=== PATIENT | male | born 1985 | race African-American/Black ===

== ENCOUNTER 2021-12-28 13:20 | Emergency (ER) | payer MEDICAID ==
[~2021-12-28] VITALS: Ht 175.3 cm; Wt 68.0 kg
[2021-12-28 13:44] VITALS: BP 127/68
[2021-12-28] MEDS ORDERED: TRIA15CR61 TOP (14:59)
[2021-12-28] MEDS ORDERED: ALBU6.7H14 INH (14:59)
== END 2021-12-28 15:15 | disposition home or self-care (01) ==
LOC: ER 13:20
DX: J45.909 Unspecified asthma, uncomplicated (principal); L30.9 Dermatitis, unspecified
CPT/HCPCS: 71045; 99283

== ENCOUNTER 2021-12-29 02:25 | Emergency (ER) | payer MEDICAID ==
[~2021-12-29 02:25] MED LIST: ALBU6.7H14 INH; TRIA15CR61 TOP
== END 2021-12-29 02:57 | disposition home or self-care (01) ==
LOC: ER 02:29
DX: R07.89 Other chest pain (principal); J45.909 Unspecified asthma, uncomplicated; Z59.00 Homelessness unspecified; Z79.899 Other long term (current) drug therapy
CPT/HCPCS: 93005; 99283

== ENCOUNTER 2022-01-05 16:58 | Emergency (ER) | payer MEDICAID ==
[~2022-01-05] VITALS: Ht 175.3 cm; Wt 72.0 kg
[2022-01-05 17:19] VITALS: BP 131/77
== END 2022-01-05 20:07 | disposition left against medical advice (07) ==
LOC: ER 16:58
DX: R07.89 Other chest pain (principal); Z53.21 Procedure and treatment not carried out due to patient leaving prior to being seen by health care provider
CPT/HCPCS: 93005

== ENCOUNTER 2022-02-08 10:10 | Emergency (ER) | payer MEDICAID ==
[~2022-02-08] VITALS: Ht 175.3 cm; Wt 72.7 kg
[~2022-02-08 10:10] MED LIST changes: -TRIA15CR61 TOP
[2022-02-08 10:15] VITALS: BP 119/76
[2022-02-08] MEDS ORDERED: CefTRIAXone 1000mg IM Kit (w/lidocaine diluent) IM STA (10:19)
[2022-02-08] MEDS ORDERED: azithromycin 250mg tablet PO ONE (10:20)
== END 2022-02-08 12:18 | disposition home or self-care (01) ==
LOC: ER 10:10
DX: R30.0 Dysuria (principal); A64 Unspecified sexually transmitted disease; F17.200 Nicotine dependence, unspecified, uncomplicated; J45.909 Unspecified asthma, uncomplicated; Z79.899 Other long term (current) drug therapy
CPT/HCPCS: 36415; 87491; 87591; 96372; 99283; J0696

== ENCOUNTER 2022-02-11 20:00 | Emergency (ER) | payer MEDICAID | END 2022-02-11 21:52 | disposition left against medical advice (07) | LOC: ER 20:00 | DX: F41.0 Panic disorder [episodic paroxysmal anxiety] (principal); Z53.21 Procedure and treatment not carried out due to patient leaving prior to being seen by health care provider ==

== ENCOUNTER 2022-02-11 22:07 | Emergency (ER) | payer MEDICAID ==
[~2022-02-11] VITALS: Ht 175.3 cm; Wt 72.7 kg
[2022-02-11] MEDS ORDERED: LORazepam 1 MG tablet PO ONE (23:05)
[2022-02-11 23:15] VITALS: BP 134/78
== END 2022-02-11 23:28 | disposition home or self-care (01) ==
LOC: ER 22:08
DX: F41.9 Anxiety disorder, unspecified (principal); J45.909 Unspecified asthma, uncomplicated; Z59.00 Homelessness unspecified; Z79.899 Other long term (current) drug therapy
CPT/HCPCS: 99283

== ENCOUNTER 2022-02-12 19:58 | Emergency (ER) | payer MEDICAID ==
[~2022-02-12] VITALS: Ht 175.3 cm; Wt 72.7 kg
[2022-02-12 20:41] VITALS: BP 197/83
--- NOTE | 2022-02-13 07:06 | NUR ---
PT HAS BEEN SLEEPING IN LOBBY FOR PAST SEVERAL HOURS. NO OUTWARD S\\S OF ANXIETY NOTED. PT WAS MOVED IN T2 AND I BEGAN ASKING ASSESSMENT QUESTIONS BUT PT MADE ME FEEL UNCOMFORTABLE BY HIS BODY LANGUAGE AND REFUSAL TO ANSWER MY QUESTIONS. PT DROPPED HIS PHONE AND WAS THRASHING OUR FURNITURE ABOUT TO GET TO IT. WHEN ASKED WHAT HE NEEDS TO BE SEEN FOR HE STATES "ANXIETY" AND "YOU GUYS GAVE ME A PILL AND I'M GOING TO KEEP COMING BACK EVERYDAY TO GET ONE" - I LEFT THE ROOM AND ASKED FOR SECURITY TO STANDBY. PT WAS LEFT IN T2 FOR APPROX 3 MINUTES AND WAS ALREADY SLEEPING AGAIN WHEN REGISTRATION ARRIVED TO GET INFO FROM PT.
[2022-02-13] MEDS ORDERED: LORazepam 1 MG tablet PO ONE (07:15)
[2022-02-13] MEDS ORDERED: PARO37.517 PO (07:16)
== END 2022-02-13 07:38 | disposition home or self-care (01) ==
LOC: ER 19:58
DX: F41.9 Anxiety disorder, unspecified (principal); J45.909 Unspecified asthma, uncomplicated; Z79.899 Other long term (current) drug therapy
CPT/HCPCS: 99283

== ENCOUNTER 2022-02-13 23:23 | Emergency (ER) | payer MEDICAID ==
[~2022-02-13] VITALS: Ht 175.3 cm; Wt 72.0 kg
[~2022-02-13 23:23] MED LIST changes: +PARO37.517 PO
[2022-02-14] VITALS: BP_SYST 116
== END 2022-02-14 01:53 | disposition left against medical advice (07) ==
LOC: ER 23:24
DX: J45.909 Unspecified asthma, uncomplicated (principal); Z53.21 Procedure and treatment not carried out due to patient leaving prior to being seen by health care provider